=== PATIENT | female | born 1980 | race Caucasian/White ===

== ENCOUNTER 2016-08-06 18:49 | Emergency (ER) | payer BC ==
[2016-08-06] MEDS ORDERED: Penicillin G Benzathine 1.2MU* 1,200,000 UNITS/2 ML SYR IM ONE (19:17)
[2016-08-06 19:19] VITALS: BP 117/89
--- NOTE | 2016-08-06 19:28 | UC ---
Throat Pain/Nasal Chidi HPI - HPI Summary HPI Summary: ST since 08/04/16. Getting worse. No fever. Had a flu shot. Hx asthma. No SOB. - History of Current Complaint Chief Complaint: UCGeneralIllness Stated Complaint: SORE THROAT Time Seen by Provider: 08/06/16 19:17 Hx Obtained From: Patient Hx Last Menstrual Period: 07/08/16 ?: No Onset/Duration: Gradual Onset, Lasting Days, Still Present Severity: Moderate Pain Intensity: 3 Pain Scale Used: 0-10 Numeric Cough: None Associated Signs & Symptoms: Positive: Dysphagia Related History: T & A - Epiglottits Risk Factors Epiglottis Risk Factors: Negative - Allergies/Home Medications Allergies/Adverse Reactions: Allergies Allergy/AdvReac Type Severity Reaction Status Date / Time No Known Allergies Allergy Verified 08/06/16 19:19 Home Medications: Home Medications Cetirizine* [ZyrTEC 10 MG TAB*] 10 mg PO BEDTIME 08/06/16 [History Confirmed ] Ibuprofen TAB* [Advil TAB*] 400 mg PO Q6H PRN 08/06/16 [History Confirmed ] PMH/Surg Hx/FS Hx/Imm Hx Respiratory History Of: Reports: Asthma - Surgical History Surgical History: Yes Surgery Procedure, Year, and Place: 1 . T & A. left ACL recon 2005. ear tubes age 4 - Family History Known Family History: Positive: Hypertension - mother; uncle with ascending AAA - Social History Occupation: Employed Full-time Lives: With Family Alcohol Use: Occasionally Substance Use Type: None Smoking Status (MU): Never Smoked Tobacco - Immunization History Most Recent Influenza Vaccination: [id number] Review of Systems Constitutional: Negative ENT: Sore Throat Respiratory: Negative All Other Systems Reviewed And Are Negative: Yes Physical Exam Triage Information Reviewed: Yes Appearance: Well-Nourished, Ill-Appearing, Pain Distress Vital Signs: Initial Vital Signs Temp 97.9 F 08/06/16 19:15 Pulse 79 08/06/16 19:15 Resp 16 08/06/16 19:15 BP 117/89 08/06/16 19:15 Pulse Ox 99 08/06/16 19:15 Vital Signs Reviewed: Yes Eyes: Positive: Conjunctiva Clear ENT: Positive: Pharyngeal erythema, TMs normal Neck: Positive: Supple, Nontender, Enlarged Nodes @ - left lateral cervical Respiratory: Positive: Lungs clear, Normal breath sounds, No respiratory distress Cardiovascular: Positive: RRR, No Murmur, Pulses Normal, Brisk Capillary Refill Musculoskeletal: Positive: Strength Intact, ROM Intact Neurological: Positive: Alert, Muscle Tone Normal Psychological Exam: Normal Skin Exam: Normal Throat Pain/Nasal Course/Dx - Course Course Of Treatment: rapid A positive - Differential Dx/Diagnosis Differential Diagnosis/HQI/PQRI: Influenza, Otitis Media, Pharyngitis, URI Provider Diagnoses: acute strep pharyngitis Discharge - Discharge Plan Condition: Stable Disposition: HOME Patient Education Materials: Strep Throat (ED) Forms: *Work Release Referrals: Lyric Abraham DO [Primary Care Provider] - Additional Instructions: You were given Bicillin LA 1.2 MU at 7:30pm. Return to urgent care if any new or worsening symptoms.
== END 2016-08-06 19:37 | disposition home or self-care (01) ==
LOC: UCCORT 18:49
DX: J02.0 Streptococcal pharyngitis (principal)
CPT/HCPCS: 87651; 96372; 99211; G0463; J0558